=== PATIENT | female | born 2005 | race Caucasian/White ===

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

== ENCOUNTER 2025-01-20 06:52 | Emergency (ER) | payer MEDICAID ==
[~2025-01-20] VITALS: Ht 157.5 cm; Wt 62.1 kg
[~2025-01-20 06:52] MED LIST changes: +BUPR-94 PO; -CEPH-571 PO; -DOCU-171 PO; -FAMO-128 PO; -ONDA-245 PO; +TOP25T PO
--- NOTE | 2025-01-20 10:16 | Physician Documentation ---
HPI ~ General Chief Complaint: Tooth Problem Stated Complaint: FACIAL SWELLING Time Seen by MD: 09:43 Primary Medical Doctor: NIKOLAS History of Present Illness HPI Comment Very pleasant 19-year-old female that presents to the emergency department for evaluation of dental pain. Patient reports she had wisdom teeth removed approximately 2 weeks ago. Patient currently has swelling along the left lower gumline adjacent to the 3rd molar. Patient denies fever chills nausea vomiting diarrhea at this time. Patient reports that she will follow up with her dentist but they are closed due to the holiday. Patient would like a course of antibiotics if we are able to provide them. Mild submandibular lymphadenopathy noted on the left side and neck, no difficulty swallowing no concern for airway at this time. Medication Reconciliation Allergies: Coded Allergies: ceftriaxone (Verified Allergy, Severe, Anaphylaxis, 01/20/25) Penicillins (Unverified Allergy, Intermediate, respiratory issues, 01/20/25) Sulfa (Sulfonamide Antibiotics) (Unverified Allergy, Mild, rash, 01/20/25) lactose (Verified Allergy, Mild, Pt reports stomach upset, 01/20/25) shellfish derived (Unverified Allergy, Mild, nausea/vomiting, 01/20/25) Scheduled Bupropion Hcl (Wellbutrin Xl), 2 TAB PO DAILY Topiramate (Topamax), 75 MG PO BID Past Medical History Past Medical History: No Pertinent History Past Surgical History: no surgical history Alcohol Use: None Drug Use: none Lives In: Home Review of Systems ROS As stated above in the HPI, otherwise all systems are reviewed and negative. Constitutional: Reports: no symptoms reported, see HPI, chills, diaphoresis, fever, malaise, weakness, other Eyes: Reports: no symptoms reported, see HPI, pain, discharge, blurred vision, double vision, itching, photophobia, redness, tearing, other ENT: Reports: no symptoms reported, see HPI, ear pain, ear bleeding, ear discharge, hearing loss, ear ringing, nose pain, nose bleeding, nose congestion, nose discharge, throat pain, throat swelling, voice change, mouth pain, mouth bleeding, mouth swelling, other Respiratory: Reports: no symptoms reported, see HPI, cough, orthopnea, shortness of breath, SOB with exertion, SOB at rest, stridor, wheezing, hemoptysis, pain with breathing, other Cardiovascular: Reports: no symptoms reported, see HPI, chest pain, left arm pain, diaphoresis, lightheadedness, syncope, edema, palpitations, irregular heart rate, other Physical Exam Vital Signs: Temperature: 97.0, Source: Temporal, Heart Rate: 85, Respiratory Rate: 18, BP: 105/69, Pulse Oximetry: 100, Weight: 62.100 Physical Exam VITALS: Reviewed and as above. GENERAL: Alert, no apparent distress. HEENT: Normocephalic, atraumatic, PERRL, EOMI, dry mucosa, edema erythema tenderness noted at the 3rd molar on the lower left jaw. Lymphadenopathy noted at the submandibular lymph nodes in the left side. RESPIRATORY: Lungs clear, normal breath sounds, no respiratory distress. NEURO: Oriented x4, No motor or sensory deficit PSYCH: Normal mood and affect, no agitation Progress Results/Orders Results/Orders Completed Orders - SERA GARVEY Clindamycin Capsule (Cleocin Capsule) (01/20/25 09:55) Medications Received in ER Medications (Trade) Dose Ordered Sig/Pastora Route PRN Reason Start Time Stop Time Status Last Admin Dose Admin (Cleocin capsule) 300 mg ONCE ONCE PO 01/20/25 09:55 01/20/25 09:56 DC 01/20/25 10:02 300 MG Vital Signs 01/20/25 06:55 Temp 97.0 Pulse 85 Resp 18 B/P (MAP) 105/69 Pulse Ox 100 Medical Decision Making Additional information obtaine: other Findings Chief Complaint: Dental pain following wisdom tooth extraction two weeks ago History of Present Illness: 19-year-old female presents to the emergency department with dental pain following left lower third molar extraction performed two weeks prior. Patient reports swelling along the left lower gumline adjacent to the extraction site with associated mild left submandibular lymphadenopathy. Denies fever, chills, nausea, vomiting, diarrhea, difficulty swallowing, or airway concerns. Physical Examination: Swelling along left lower gumline adjacent to third molar extraction site Mild left submandibular lymphadenopathy No evidence of fascial space involvement No fever or signs of systemic involvement Airway patent without compromise Assessment: Localized acute apical abscess following third molar extraction with regional lymph node involvement Medical Decision-Making: Diagnosis and Risk Stratification: The patient presents with a localized acute apical abscess characterized by swelling and lymph node involvement following recent dental extraction. The absence of fever, fascial space involvement, or systemic signs indicates this is a localized infection without systemic spread. The presence of lymphadenopathy elevates this beyond simple post-extraction inflammation and warrants antibiotic therapy according to [employer] guidelines. Treatment Plan - Antibiotics: Given the patient's multiple drug allergies, clindamycin was selected as the appropriate first-line antibiotic. The [employer] recommends clindamycin (300 mg four times daily for 3-7 days) for patients with penicillin allergies who present with localized acute apical abscess. The patient received her first dose in the emergency department. She was counseled regarding the FDA Black Box warning for Clostridium difficile infection associated with clindamycin and instructed to contact her primary care provider if she develops fever, abdominal cramping, or three or more loose bowel movements per day. Treatment Plan - Pain Management: For acute dental pain management, NSAIDs with or without acetaminophen represent first-line therapy. The patient was instructed to use acetaminophen and ibuprofen as needed for discomfort, which provides superior pain relief compared to opioid medications following dental procedures. Maximum daily doses were reviewed: 2,400 mg ibuprofen and 4,000 mg acetaminophen. Follow-up and Monitoring: The patient requires reevaluation within 3 days per [employer] guidelines for patients receiving antibiotics for dental infections. She was instructed to follow up with her primary care provider for clinical reassessment and with her dentist for definitive dental evaluation and management. The patient was counseled to discontinue antibiotics 24 hours after symptoms resolve. Patient Education and Safety: The patient was instructed to return to the emergency department or contact her primary care provider immediately if she experiences worsening symptoms including increased swelling, difficulty swallowing, breathing difficulties, fever, or progression of infection despite antibiotic therapy. She was advised that definitive dental treatment may be necessary depending on clinical course. Disposition: Discharge home with close outpatient follow-up. Patient demonstrates understanding of treatment plan, warning signs, and follow-up instructions. No airway concerns or systemic involvement at time of discharge. Differential Dx:Considerations: Include: Alveolar fracture, Alveolar osteitis, ANUG, Facial Cellulitis, Periapical abscess, Peridontal abscess, Post-extraction bleeding, Pulpitis, Tooth avulsion, Tooth eruption, Tooth Fracture, Trigeminal neuralgia, Tooth subluxation, Other Departure Disposition: 01 HOME / SELF CARE / HOMELESS Impression: Primary Impression: Dental caries Additional Impression: Dental abscess Condition: Stable Discharge Instructions: Dental Pain, Dental Abscess Additional Instructions: You have been treated for a dental infection (acute apical abscess) after your wisdom tooth extraction. You received clindamycin for the infection and were advised to use acetaminophen and ibuprofen for pain relief. Please follow these instructions to help you recover safely: Antibiotic Instructions (Clindamycin): Take clindamycin exactly as prescribed. Do not skip doses and finish the full course, even if you feel better. Take each dose with a full glass of water and remain upright for at least 10 minutes to reduce the risk of throat irritation. Clindamycin can cause diarrhea. If you develop severe diarrhea (watery, bloody stools), abdominal pain, or fever, stop the medication and contact your doctor immediately. This could be a sign of a serious infection called Clostridioides difficile.[1][4] If you have any rash, difficulty breathing, or swelling, seek medical attention right away. Pain Management: Use ibuprofen (up to 2,400 mg per day) and acetaminophen (up to 4,000 mg per day) as needed for pain. You may take them together for better pain relief, but do not exceed the maximum daily doses.[3] Take ibuprofen with food to avoid stomach upset. Do not take other medications containing acetaminophen (such as some cold or pain medicines) without checking the label, to avoid accidental overdose. Oral Care: Keep the extraction site clean. Gently rinse your mouth with warm salt water after meals, but do not vigorously swish or spit for the first 24 hours. Avoid smoking, drinking through a straw, or touching the area with your fingers. What to Expect: Some pain and swelling are normal after dental surgery. Pain should gradually improve over the next few days.[3][5] Swelling may last up to a week. When to Seek Help: Call your dentist or doctor if you have increasing pain, swelling, trouble opening your mouth, difficulty swallowing, fever, or if your symptoms do not improve after 3 days of antibiotics.[1] If you develop trouble breathing, severe swelling, or cannot swallow, seek emergency care immediately. Follow-Up: Schedule a follow-up visit with your dentist within the next few days for further evaluation and possible definitive dental treatment.[1] Other Information: Antibiotics are only effective for bacterial infections and will not help with pain alone. Do not share your medication with others. If you have any questions or concerns, please contact your healthcare provider. References Referrals: NO PRIMARY CARE PROVIDER (PCP) Prescriptions Clindamycin HCl (Clindamycin HCl) 300 Mg Capsule 1 CAP PO Q8H for 10 Days, #30 CAP Prov: SERA GARVEY 01/20/25 Education Educated: Patient Educated regarding: diagnosis, treatment, need for follow up Signature Scribe Signature: A Attestation: Scribed for Sera Garvey by JOE Mcduffie . 01/20/25 10:20 SERA GARVEY Jan 20, 2025 10:16
[2025-01-20 10:17] VITALS: BP 110/68; PULSE 75; RESP 16; TEMP 97; O2SAT 99
[2025-01-20] MEDS ORDERED: CLIN300C54 PO (10:17)
== END 2025-01-20 10:23 | disposition home or self-care (01) ==
LOC: ER 06:52
DX: K02.9 Dental caries, unspecified (principal); K04.7 Periapical abscess without sinus; Z88.1 Allergy status to other antibiotic agents; Z88.0 Allergy status to penicillin; Z88.2 Allergy status to sulfonamides; Z91.013 Allergy to seafood; Z88.8 Allergy status to other drugs, medicaments and biological substances; Z79.899 Other long term (current) drug therapy
CPT/HCPCS: 99283